=== PATIENT | female | born 1990 | race Caucasian/White ===

== ENCOUNTER 2016-09-29 09:15 | Emergency (ER) | payer OTHER ==
[~2016-09-29] VITALS: Ht 170.2 cm; Wt 68.0 kg
[2016-09-29 09:36] LABS: URINE BILIRUBIN NEGATIVE (Negative); URINE BLOOD 3+ (Negative); URINE COLOR YELLOW; URINE GLUCOSE-RANDOM* NEGATIVE (Negative); URINE KETONES NEGATIVE (Negative); URINE LEUKOCYTES-REFLEX NEGATIVE (Negative); URINE PROTEIN (DIPSTICK) NEGATIVE (Negative); URINE SPECIFIC GRAVITY 1.025 (1.003-1.035); URINE UROBILINOGEN 0.2 E.U./dl (0.2-1.0)
[2016-09-29 09:52] LABS: SQUAMOUS >10 Many /LPF (0-3)
[2016-09-29 09:53] LABS: CASTS None Seen /LPF (None Seen); CRYSTALS None Seen /LPF (None Seen); URINE WBC-REFLEX 0-5 Rare /HPF (0-5)
[2016-09-29 10:13] LABS: ABSOLUTE NEUTROPHILS 3.7 thou/uL (1.4-8.2); BASOPHILS 1.3 % (0.0-2.0); EOSINOPHILS 1.2 % (0.0-3.0); HEMOGLOBIN 13.3 gm/dL (12.0-15.0); LYMPHOCYTES 29.8 % (24.0-44.0); MCH 31.7 pg (26.0-34.0); MCHC 34.1 g/dL (28.0-37.0); PLATELET COUNT 204 thou/uL (150-400); POLYS 59.7 % (36.0-66.0); RDW 13.3 % (10.5-14.5); WBC 6.2 thou/uL (4.0-11.0)
[2016-09-29 10:16] LABS: CALCIUM 8.7 mg/dL (8.5-10.1); POTASSIUM 3.9 mmol/L (3.5-5.1)
[2016-09-29 10:44] LABS: MANUAL DIFF NO
[2016-09-29 10:47] LABS: ALBUMIN 4.2 g/dL (3.4-5.0); TOTAL BILIRUBIN 0.5 mg/dL (<0.1-1.0)
[2016-09-29] MEDS ORDERED: PHENERGAN 25 MG25 M1 PO (13:12)
[2016-09-29] MEDS ORDERED: HYDROCODONE-AP1 EAC6 PO (13:12)
[2016-09-29] MEDS ORDERED: FLOMAX0.4 MG PO (13:12)
[2016-09-29] MEDS ORDERED: TORADOL 10 MG T10 MG PO (13:12)
[2016-09-29 13:35] VITALS: BP 110/68
== END 2016-09-29 13:13 | disposition home or self-care (01) ==
LOC: ER 09:15
PROVIDERS: Physician Assistant
DX: N20.0 Calculus of kidney (principal); F15.10 Other stimulant abuse, uncomplicated